=== PATIENT | female | born 1960 | race Caucasian/White ===

== ENCOUNTER → 2022-02-08 | Outpatient (CLI) | payer OTHER ==
[2022-02-12 10:10] LABS: HPV 16 Negative (Negative); HPV 18 Negative (Negative); HPV OTHER HR TYPES Negative (Negative)
== END | disposition home or self-care (01) ==
LOC: LAB SHORT 12:25
PROVIDERS: Physician Assistant
DX: Z19.1 Hormone sensitive malignancy status (principal)
CPT/HCPCS: 87624; G0145